=== PATIENT | female | born 1990 | race Caucasian/White ===

== ENCOUNTER 2024-01-14 13:48 | Emergency (ER) | payer OTHER, SELFPAY ==
[2024-01-14 14:40] VITALS: BP 129/90; PULSE 78; RESP 16; TEMP 36.8; O2SAT 98; BMI 34.1
--- NOTE | 2024-01-14 14:40 | ED_ITS ---
HPI - Eye Problem General Chief complaint: Eye Problems Stated complaint: swollen eye Time Seen by Provider: 01/14/24 14:50 Source: patient Mode of arrival: ambulatory Limitations: no limitations History of Present Illness HPI Narrative: Patient is a 33-year-old female who presents emergency department for evaluation of left eye redness drainage and crusting of the eyelashes. Reports that her daughter is currently being treated for pinkeye. The onset of her symptoms was 3 days ago. She denies any acute visual changes. Denies fevers or chills. Denies any trauma or injury to the eye. Denies wearing contact lenses Related Data Previous Rx's ?Medication ?Instructions ?Recorded polymyxin B sulfate 10,000 1 drp ophthalmic (eye) Q3H 7 days 01/14/24 unit-trimethoprim 1 mg/mL eye drops #10 mL Allergies Allergy/AdvReac Type Severity Reaction Status Date / Time No Known Allergies Allergy Verified 01/14/24 14:43 Review of Systems Review of Systems: Yes all other systems are reviewed and are negative [facility] Past Medical History Attestation statement: The following information was validated with the patient. Source: old records reviewed Social History Social History Advance Directives: No Advance Directives Information Provided: Yes Physical Exam Vital Signs: Vital Signs: Last Vital Signs Temp 98.3 F 01/14/24 15:04 Pulse 78 01/14/24 15:04 Resp 16 01/14/24 15:04 BP 129/90 H 01/14/24 15:04 Pulse Ox 98 01/14/24 15:04 O2 Del Method Room Air 01/14/24 15:04 BMI result Body Mass Index 34.1 Appearance: Alert.?Oriented to person, place and time. No acute distress.?Normal affect. Eyes: Pupils equal, round and reactive to light.? EOMI. No nystagmus. Left sclera injected conjunctival erythema, purulent discharge on the lower lash line ENT: Pharynx normal.?? Neck: Normal inspection.? Neck supple.?? CVS: Heart sounds normal. Normal heart rate and rhythm.? Pulses normal.?? Respiratory: No respiratory distress.? Lung sounds clear to auscultation bilaterally?? Skin: Skin warm and dry.? Normal skin color.? Extremities: No lower extremity edema.? Neuro: Moves all extremities spontaneously. Sensation intact bilaterally. Ambulates with normal steady gait. Medical Decision Making Medical Decision Making MDM Narrative: Patient is a 33-year-old female who presents emergency department for evaluation of left eye redness and drainage, history and physical examination most consistent with bacterial conjunctivitis, suspect less likely to be viral or allergic conjunctivitis given her daughter is currently being treated for bacterial conjunctivitis as well. No periorbital cellulitis, no exam findings to be concern for orbital cellulitis. No chemosis. She is nontoxic in appearance. Afebrile without tachycardia. Acuity is not impaired. Discussed plan of care for discharge home, treatment with antibiotic drops, discussed worrisome signs and symptoms that would warrant re-evaluation in the emergency department. All questions answered. Stable for discharge. Differential Diagnosis Differential Diagnoses: The differential diagnosis associated with the presentation includes ( see narrative above) External Record Review External record reviewed: Outpatient record Prescription Management I considered prescription management with: Antibiotic Discharge Plan Discharge Clinical Impression: Bacterial conjunctivitis Patient Disposition: Home, Self-Care Instructions: Conjunctivitis (ED) Additional Instructions: Practice good handwashing, avoid touching the tip of the eye drop applicator to the surface of the eye. Use 1 drop every 3 hours while awake, do not use more than 6 drops daily. Follow-up with primary care provider Prescriptions: New polymyxin B sulf-trimethoprim 10,000 unit- 1 mg/mL drops 1 drp ophthalmic (eye) Q3H 7 Days Qty: 10 0RF Rx Instructions: while awake; do not exceed 6 doses in 24 hours Referrals: Physician,Unknown J [Primary Care Provider] - Interventions: ED Discharge Assessment Last Done: 01/14/24 15:04 Discharge Date/Time: 01/14/24 15:15 Print Language: Scottish
[2024-01-14 15:04] VITALS: BP 129/90; PULSE 78; RESP 16; TEMP 36.8; O2SAT 98
== END 2024-01-14 15:30 | disposition home or self-care (01) ==
LOC: HO.ED 15:07
PROVIDERS: Emergency Provider Emergency Medicine Emergency Medical Services
DX: H10.32 Unspecified acute conjunctivitis, left eye (principal); H57.12 Ocular pain, left eye
CPT/HCPCS: 99282; 99283

== ENCOUNTER 2024-01-15 13:37 | Emergency (ER) | payer OTHER, SELFPAY ==
[2024-01-15 14:42] VITALS: BP 151/92; PULSE 58; RESP 16; TEMP 36.6; O2SAT 99; BMI 35.2
--- NOTE | 2024-01-15 14:42 | ED_ITS ---
HPI - Eye Problem General Chief complaint: Eye Problems Stated complaint: l eye issue Time Seen by Provider: 01/15/24 16:33 Source: patient, RN notes reviewed and old records reviewed Mode of arrival: ambulatory History of Present Illness ED Provider: Kianna Vasquez PA-C HPI Narrative: 33-year-old female with a past medical history of conjunctivitis, seen in our ED on 01/13, started on antibiotic drops, presenting to the ED complaining of worsening left eye discomfort and swelling with difficulty opening eye. Reports associated left eye itching and blurry vision. Denies wearing glasses or contacts. Denies trauma. Daughter with conjunctivitis as well. Denies fever, vision loss, nausea/vomiting MD chief complaint: eye pain and eye redness Related Data Previous Rx's ?Medication ?Instructions ?Recorded polymyxin B sulfate 10,000 1 drp ophthalmic (eye) Q3H 7 days 01/14/24 unit-trimethoprim 1 mg/mL eye drops #10 mL amoxicillin 875 mg-potassium 1 tab PO BID 7 days #14 tabs 01/15/24 clavulanate 125 mg tablet Allergies Allergy/AdvReac Type Severity Reaction Status Date / Time No Known Allergies Allergy Verified 01/15/24 14:42 Review of Systems 2 Review of Systems: Constitutional: No Fever, No Chills, No Fatigue, No Malaise ENT/Mouth: No Hearing loss, No Ear Pain, No Nasal Congestion, No sore throat, No Rhinorrhea, No Swallowing Difficulty Eyes: + Eye Pain, + Swelling, + Redness, No Foreign Body, + Discharge, + Vision Changes Cardiovascular: No Chest Pain, No SOB Respiratory: No Cough, No Sputum, No Dyspnea Skin: No Skin Lesions, No rash Neuro: No Weakness,No Dizziness, No Headache Yes all other systems are reviewed and are negative Constitutional: Constitutional: Reports as per HPI Eyes: Eyes: Reports photophobia (Left) [facility] Past Medical History Attestation statement: The following information was validated with the patient. Source: old records reviewed Social History Social History Advance Directives: No Advance Directives Information Provided: No Physical Exam 2 Vital Signs: Vital Signs: Last Vital Signs Temp 97.4 F 01/15/24 17:25 Pulse 55 01/15/24 17:25 Resp 18 01/15/24 17:25 BP 137/78 01/15/24 17:25 Pulse Ox 100 01/15/24 17:25 O2 Del Method Room Air 01/15/24 17:25 BMI result Body Mass Index 35.2 Const: General: cooperative, healthy appearing and no acute distress O rientation/consciousness: patient oriented x3 Limitations: no limitations HEENT: Head: Yes normal to inspection and Yes atraumatic Ears: hearing grossly normal bilaterally General nose exam: Normal external nose present Face and sinus: Yes normal facial exam Mouth: Normal oral and palatal mucosa present Eyes: Other: IOP 23 General: appearance normal, both eyes and all related structures C onjunctivae: conjunctival abnormal left conjunctival chemosis (greatest to lateral aspect), conjunctival injection diffuse and discharge; without subconjunctival hemmorhages Corneas: corneas normal and fluorescein used (Without uptake) Pupils: Equal, round and reactive pupils present EOM: E OMs intact bilaterally (pain with leftward eye movement) and no movement deficit Direct Ophthalmoscopy: normal light reflex and photophobia (Left) Neck: Neck: Yes normal visual inspection and Yes no meningeal signs Resp: Effort & Inspection: normal respiratory effort and no respiratory distress Cardio: Rate: regular rate Skin: Rashes: no rashes Wounds: no wounds Neuro: General: patient oriented x3, tone normal and no meningeal signs C ranial nerves: Yes CN's II-XII intact bilaterally and Yes Equal, round and reactive pupils present Gait exam (Neuro): Normal gait present Extrem: General: Yes normal to inspection Course Course Course Narrative: This is a Rapid Medical Examination (RME) performed by Alexys Zuniga PA-C in triage. Full HPI, ROS, assessment and treatment plan per primary provider in the Main ED. 33 yo female with recently diagnosed left eye conjunctivitis, discharge with antibiotic eyedrops presents to the ER for evaluation of worsening symptoms. She reports worsening swelling, unable to open the eye. She used the drops twice which made her eyes slightly itchy. No drainage from the eyes. On exam patient has moderate swelling and erythema of the upper eyelid and periorbital structures, sclera swelling, and diffuse injection. Pain with EOM. Plan: labs, full eye exam in [facility] Medications Administered Discontinued Medications Generic Name Dose Route Start Last Admin Trade Name Freq PRN Reason Stop Dose Admin Fluorescein Sodium 1 strip 01/15/24 14:45 01/15/24 17:03 Fluorescein Sodium Strip EYE-LEFT 01/15/24 14:46 1 strip ONCE ONE Administration Tetracaine HCl 1 drop 01/15/24 14:45 01/15/24 17:03 Tetracaine Hcl/Pf 0.5% Oph Arlen 4 Ml Drops EYE-LEFT 01/15/24 14:46 1 drop ONCE ONE Administration Medical Decision Making Medical Decision Making MDM Narrative: 33-year-old female with a past medical history of conjunctivitis, seen in our ED on 01/13, started on antibiotic drops, presenting to the ED complaining of worsening left eye discomfort and swelling with difficulty opening eye. On exam vital signs stable, NAD, nontoxic appearing, physical exam as noted above with left eye conjunctival injection with discharge/tearing and chemosis. EOMs intact with discomfort with leftward motion (where most chemosis is present). No orbital step-off. Concern for ? septal cellulitis vs persistent conjunctivitis. Lower suspicion for preseptal cellulitis. No evidence of globe rupture. No fluorescein uptake. Lower suspicion for gonococcal conjunctivitis Plan: Visual acuity, fluorescein staining, intra-ocular pressures Case discussed with ED attending Dr. Willis who also evaluated patient. Concern for persistent conjunctivitis however w/worsening infection. Plan to have patient continue topical antibiotics and initiate Augmentin. Do not feel patient needs double coverage at this time, has only been on topical antibiotics x24hrs (& states she only used a couple times). Recommended compliance with topical antibiotics. Discussed worrisome signs and symptoms and strict return precautions and she should be re-evaluated in 48 hours. Will discharge home on Augmentin. Also referred to Ophthalmology. Please refer to course for remaining clinical decision making, interpretation of labs/imaging results, and discussions with consultants and/or family members. Results discussed with patient including worrisome signs and symptoms and strict return precautions, and when to return to the emergency department. They verbalized understanding and feel safe for discharge at this time. Differential Diagnosis Differential Diagnoses: The differential diagnosis associated with the presentation includes As above Admission/Observation Consideration of admission/observation: Escalation of care including admission/observation considered Lab Data [facility] Lab Attestation statement: I reviewed the patient's lab results. 01/15/24 15:18 01/15/24 15:18 Labs: Lab Results 01/15/24 Range/Units 15:18 WBC 7.9 (4.8-10.8) X10*3/uL RBC 4.27 (4.20-5.50) X10*6/uL Hgb 13.0 (12.0-16.0) g/dl Hct 38.6 (37.0-47.0) % MCV 90.4 (80.0-98.0) fL MCH 30.4 (27.0-33.0) pg MCHC 33.7 (31.0-35.0) g/dl RDW 13.8 (11.0-16.0) % Plt Count 371 (160-400) X10*3/uL MPV 9.7 (9.4-12.3) fL Immature Gran % (Auto) 0.3 (0.0-0.4) % Neut % (Auto) 52.1 (45-73) % Lymph % (Auto) 38.4 (20-40) % [place] % (Auto) 7.7 (2-11) % Eos % (Auto) 1.1 (0-4) % Baso % (Auto) 0.4 (0-2) % Lymph # (Auto) 3.0 (1.2-4.9) X10*3/uL [place] # (Auto) 0.6 (0.1-1.2) X10*3/uL Eos # (Auto) 0.1 (0.0-0.4) X10*3/uL Baso # (Auto) 0.0 (0.0-0.2) X10*3/uL Abs Immat Gran (auto) 0.02 (0.00-0.03) X10*3/uL Absolute Neuts (auto) 4.1 (2.0-8.3) x10*3/uL Absolute Nucleated RBC 0.000 (0.0-0.012) X10*3/uL Nucleated RBC % (auto) 0.0 (0.0-0.2) /100WBC ESR 12 (0-20) MM/HR Sodium 142 (135-145) mmol/L Potassium 3.4 (3.3-5.1) mmol/L Chloride 108 (96-108) mmol/L Carbon Dioxide 26 (22-29) mmol/L Anion Gap 11 L (12-20) BUN 9 (9-16) mg/dL Creatinine 0.66 (0.5-1.4) mg/dL Estim Creat Clear Calc 115.8 Estimated GFR > 60 Random Glucose 93 (60-115) mg/dL Calcium 9.3 (8.4-10.2) mg/dL C-Reactive Protein 0.38 (< or = 0.50) mg/dL Radiology Impression Discussion of test interpretation with radiology: I have reviewed the radiologist's reading. External Record Review External record reviewed: Inpatient record, Office record, Outpatient record, Prior outpatient labs, Prior outpatient radiology, Primary care record and Outside ED record Tests considered The following testing was considered but not selected: As above Prescription Management I considered prescription management with: Pain Medication and Antibiotic Discharge Plan Discharge Clinical Impression: Conjunctivitis, Cellulitis of orbit Patient Disposition: Home, Self-Care Instructions: Orbital Cellulitis (ED), Conjunctivitis (ED) Additional Instructions: Please continue previously prescribed antibiotic drops. In addition start taking oral antibiotics as prescribed until completion PLEASE RETURN TO THE ED IN 48 HOURS FOR RE-EVALUATION IF YOU CAN NOT GET IN WITH YOUR PCP IN THE NEXT 48 HOURS If symptoms persist or worsen, you have increasing swelling, vision loss, fever return to the ED immediately Prescriptions: New amoxicillin-pot clavulanate 875-125 mg tablet 1 tab PO BID 7 Days Qty: 14 0RF No Action polymyxin B sulf-trimethoprim 10,000 unit- 1 mg/mL drops 1 drp ophthalmic (eye) Q3H 7 Days Qty: 10 0RF Rx Instructions: while awake; do not exceed 6 doses in 24 hours Referrals: Jignesh Servin [Physician] - 2 days Physician,Unknown J [Primary Care Provider] - 2 days Print Language: Togolese
[2024-01-15 15:34] LABS: MANUAL DIFF FLAG NO
[2024-01-15 15:37] LABS: Basophils Percent Auto 0.4 % (0-2); Eosinophils Absolute Auto 0.1 X10*3/uL (0.0-0.4); Eosinophils Percent Auto 1.1 % (0-4); Hematocrit 38.6 % (37.0-47.0); Imm Gran Abs Auto 0.02 X10*3/uL (0.00-0.03); Imm Gran Pct Auto 0.3 % (0.0-0.4); Lymphocytes Percent Auto 38.4 % (20-40); Mean Corpuscular HGB Conc 33.7 g/dl (31.0-35.0); Mean Corpuscular Hemoglobin 30.4 pg (27.0-33.0); Mean Corpuscular Volume 90.4 fL (80.0-98.0); Mean Platelet Volume 9.7 fL (9.4-12.3); Monocytes Absolute Auto 0.6 X10*3/uL (0.1-1.2); Monocytes Percent Auto 7.7 % (2-11); Neutrophils Absolute Auto 4.1 x10*3/uL (2.0-8.3); Neutrophils Percent Auto 52.1 % (45-73); Platelet Count 371 X10*3/uL (160-400); Red Blood Count 4.27 X10*6/uL (4.20-5.50); Red Cell Distribution Width 13.8 % (11.0-16.0); White Blood Count 7.9 X10*3/uL (4.8-10.8)
[2024-01-15 15:49] LABS: Anion Gap 11 (12-20); Blood Urea Nitrogen 9 mg/dL (9-16); Calcium 9.3 mg/dL (8.4-10.2); Carbon Dioxide 26 mmol/L (22-29); Chloride 108 mmol/L (96-108); Creatinine Clr Calc Pharmacy 115.8; Estimated Glomerular Filt Rate > 60; Glucose Random 93 mg/dL (60-115); Potassium 3.4 mmol/L (3.3-5.1); Sodium 142 mmol/L (135-145)
[2024-01-15 16:28] LABS: C Reactive Protein 0.38 mg/dL (< or = 0.50)
[2024-01-15] MEDS: Fluorescein Sodium STRIP 1 STRIP EYE-LEFT (17:03)
[2024-01-15] MEDS: Tetracaine HCl/PF 0.5% Oph Sol 4 ML DROPS 1 DROP EYE-LEFT (17:03)
[2024-01-15 17:12] LABS: Erythrocyte Sedimentation Rate 12 MM/HR (0-20)
[2024-01-15 17:25] VITALS: BP 137/78; PULSE 55; RESP 18; TEMP 36.3; O2SAT 100
== END 2024-01-15 18:19 | disposition home or self-care (01) ==
PROVIDERS: Physician Assistant; Emergency Provider Student in an Organized Health Care Education/Training Program
DX: H10.9 Unspecified conjunctivitis (principal); H05.011 Cellulitis of right orbit; H57.12 Ocular pain, left eye
CPT/HCPCS: 36415; 80048; 85025; 85652; 86140; 99283